=== PATIENT | female | born 1940 | race Two or more races ===

== ENCOUNTER 2023-01-13 00:49 | Inpatient (IN) | payer MEDICARE, OTHER ==
[~2023-01-13] VITALS: Ht 167.6 cm; Wt 56.7 kg
--- NOTE | 2023-01-13 01:05 | NUR ---
KENDRA 89 FROM HOME FOR C/O L POSTERIOR HEAD LACERATION S/P FALL IN THE BATHROOM. PER FRIEND WHO LIVES WITH THE PATIENT SHE LOST HER BALANCE AND REPORTED NO KO. TDAP IS NOT UPDATED. PATIENT WAS PLACED IN BED 4 ER ON [facility]. VSS. WILL CONT TO MONITOR
[2023-01-13] MEDS ORDERED: TDAP [DIPH/PERTUSSIS/TET] 0.5 ML VIAL IM ONE ×2 (01:14→01:30)
[2023-01-13 01:21] LABS: BASOPHILS % (AUTO) 0.3 % (0.0-2.0); EOSINOPHILS % (AUTO) 1.3 % (0.0-6.0); HEMATOCRIT 35 % (33-45); HEMOGLOBIN 11.6 g/dL (11.5-14.8); LYMPHOCYTES # (AUTO) 2.3 K/uL (0.8-4.8); LYMPHOCYTES % (AUTO) 23.4 % (20.0-44.0); MEAN CORPUSCULAR HGB CONC 33 g/dl (31.0-36.0); MEAN CORPUSCULAR VOLUME 103 fL (82-100); MONOCYTES # (AUTO) 0.8 K/uL (0.1-1.30); MONOCYTES % (AUTO) 8.3 % (2.0-12.0); NEUTROPHILS # (AUTO) 6.5 K/uL (1.8-8.9); NEUTROPHILS % (AUTO) 66.7 % (43.0-81.0); PLATELET COUNT (AUTO) 181 K/uL (150-450); RED BLOOD CELL COUNT(AUTO) 3.43 MIL/uL (4.0-5.2); WHITE BLOOD COUNT (AUTO) 9.8 K/uL (4.3-11.0)
[2023-01-13 01:36] LABS: ALANINE AMINOTRANSFERASE 33 U/L (12-78); ALBUMIN 3.3 g/dL (3.4-5.0); ALKALINE PHOSPHATASE 95 U/L (46-116); ASPARTATE AMINOTRANSFERASE 29 U/L (15-37); BILIRUBIN,DIRECT 0.2 mg/dL (0.0-0.2); BILIRUBIN,TOTAL 0.4 mg/dL (0.2-1.0); CALCIUM, SERUM 8.8 mg/dL (8.5-10.1); CARBON DIOXIDE 25 mmol/L (21-32); CHLORIDE 108 mmol/L (98-107); CREATININE 0.7 mg/dL (0.6-1.3); GLUCOSE 109 mg/dL (74-106); POTASSIUM 3.6 mmol/L (3.5-5.1); SODIUM SERUM 140 mmol/L (136-145); TOTAL PROTEIN, SERUM 6.4 g/dL (6.4-8.2); UREA NITROGEN, BLOOD 9 mg/dL (7-18)
--- NOTE | 2023-01-13 02:21 | NUR ---
COVID SWAB SENT TO LAB
[2023-01-13] MEDS ORDERED: LORA-259 PO (02:25)
[2023-01-13] MEDS ORDERED: FAMO-131 PO (02:25)
[2023-01-13] MEDS ORDERED: LEVO25TA7 PO (02:25)
[2023-01-13] MEDS ORDERED: SERT100T PO (02:25)
--- NOTE | 2023-01-13 02:25 | NUR ---
KHLOE, FRIEND: [phone]
[2023-01-13] MEDS ORDERED: ONDANSETRON HCL/PF 4 MG/2 ML VIAL IVP PRN (04:00)
[2023-01-13] MEDS ORDERED: MORPHINE SULFATE INJ 2 MG/ML DISP.SYRIN IV PRN (04:00)
[2023-01-13] MEDS ORDERED: hydrALAZINE HCL IV 20 MG VIAL IV PRN (04:00)
--- NOTE | 2023-01-13 04:12 | NUR ---
report given to bharath
[2023-01-13 04:57] LABS: THYROID STIMULATING HORMONE 6.065 uIU/mL (0.358-3.74)
--- NOTE | 2023-01-13 05:00 | NUR ---
IT TECHNICAL ARCHITECTGRADUATE SCHOOL DEAN NOTES: RECEIVE PATIENT VIA GURNEY FROM ER AWAKE,TRANSFER TO ROOM 116-1, PLACE IN BED COMFORTABLY, BED IN LOW POSITION, CALL LIGHTS WITHIN REACH, NO COMPLAIN OF PAIN AND DISCOMFORT AT THIS TIME, ON ROOM AIR SATURATING WELL, PATIENT IS A/O X3-4 WITH EPISODE OF CONFUSION, SKIN ASSESSMENT DONE DOCUMENTED, PICTURE TAKEN, INVENTORIES DONE, TAKEN AND SIGNED, PATIENT ON TELE MONITOR- SR-89 NO SYMPTOMS WAS OBSERVED, ORIENTED TO ROOM REMIND TO USE THE CALL LIGHTS WHEN NEEDED ASSISTANCE, PATIENT KEPT CLEAN AND DRY ALL NEEDS MET WILL CONTINUE TO MONITOR.
--- NOTE | 2023-01-13 06:54 | NUR ---
SPOOL CARRIER CLOSING NOTES: PATIENT SLEEP IN BED COMFORTABLY, AROUSABLE TO VERBAL STIMULI, BED IN LOW POSITION, CALL LIGHTS WITH IN REACH, NO COMPLAIN OF PAIN AND DISCOMFORT AT THIS TIME, ON ROOM AIR SATURATING WELL, PATIENT ON TELE MONITOR- SR-80, KEPT CLEAN AND DRY ALL NEEDS MET ENDORSE TO INCOMING SHIFT.
--- NOTE | 2023-01-13 07:15 | NUR ---
WILDLIFE MANAGEMENT PROFESSOR OPENING NOTES: RECEIVED PATIENT IN BED, AWAKE, ALERT, ORIENTED X 1 WITH PERIODS OF CONFUSION. PATIENT IS HARD OF HEARING WITH HEARING AID AT THE BEDSIDE. NO RESPIRATORY DISTRESS NOTED, BREATHING EVEN AND UNLABORED. ON RA TOLERATING IT WELL. PATIENT IS SR PER TELE MONITOR WITH HR OF 81. HAS SHAGGY CATH ON LEFT UPPER ARM. OCTAVIA INTACT ON LEFT SIDE OF THE HEAD, NO CONTINUOUS BLEEDING NOTED. NO C/O PAIN OR DISCOMFORT NOTED AT THIS TIME. ALL SAFETY MEASURES IN PLACE. BED LOCKED AND IN LOWEST POSITION WITH BED ALARM ON. CALL LIGHT WITHIN REACH AND INSTRUCTED PATIENT TO PLEASE USE IT WHENEVER SHE NEEDS ASSISTANCE IN GETTING UP. PATIENT VERBALIZED UNDERSTANDING AT THIS TIME. WILL CONTINUE TO MONITOR PATIENT THROUGHOUT SHIFT.
[2023-01-13 08:00] VITALS: BP 127/63
[2023-01-13] MEDS: LEVOTHYROXINE SODIUM 100 MCG TABLET PO SCH (08:04)
[2023-01-13] MEDS: FAMOTIDINE (20 MG) 20 MG TABLET PO SCH (08:04)
[2023-01-13] MEDS: SERTRALINE HCL 50 MG TABLET PO SCH (08:04)
[2023-01-13] MEDS: HEPARIN SODIUM, PORCINE 5000 UNITS/1 ML VIAL SQ SCH ×2 (08:06→20:52)
--- NOTE | 2023-01-13 09:05 | NUR ---
BED ALARM WENT OFF IN THE PATIENT'S ROOM AND PATIENT WAS TRYING TO GET UP WITHOUT CALLING THE NURSE. PATIENT WAS ASSISTED TO THE BATHROOM AND NOTICED UNSTEADY GAIT. INSTRUCTED PATIENT TO PLEASE MAKE SURE TO USE HER CALL LIGHT AND DO NOT TRY TO GET UP BY HERSELF. PATIENT AGREED..
--- NOTE | 2023-01-13 09:30 | NUR ---
FAMILY CAME BY AND STAYED WITH THE PATIENT. INFORMED THEM THAT THE PATIENT WAS TRYING TO GET UP WITHOUT HELP AND REITERATED THE INSTRUCTION TO PLEASE USE CALL LIGHT WHEN NEEDED.
--- NOTE | 2023-01-13 10:18 | NUR ---
WOUND CARE CONSULT: PT PRESENTS WITH LEFT SCALP CLOSED LACERATION WITH OCTAVIA, PRESENT ON ADMISSION. NO ACTIVE BLEEDING NOTED. RECOMMEND MD FOLLOW UP FOR OCTAVIA. WILL SEE PRN.
[2023-01-13 12:00] VITALS: BP 136/51
[2023-01-13] MEDS: ACETAMINOPHEN 325 MG TABLET PO PRN ×2 (12:06→19:07)
[2023-01-13] MEDS: IV NS 0.9% 1,000 ML IV PRN (12:06)
--- NOTE | 2023-01-13 13:00 | NUR ---
NURSE DEANA PLACE MIDLINE ON RIGHT UPPER ARM, PATIENT TOLERATED PROCEDURE WELL. PROTACATH ON LEFT UPPER ARM IS CLOGGED. NOTIFIED MD WITH AN ORDER FOR HEPARIN FLUSH. ORDER NOTED AND CARRIED OUT.
[2023-01-13] MEDS ORDERED: HEPARIN-LOCK FLUSH PORCINE PF 100 UNITS/1 ML (10 ML)DISP.SYRIN IV ONE ×2 (14:53→15:00)
[2023-01-13] MEDS ORDERED: HEPARIN SODIUM, PORCINE 1000 UNIT/1 ML VIAL IV ONE (15:00)
--- NOTE | 2023-01-13 15:22 | NUR ---
clarified heparin order with [facility] pharmacist.
[2023-01-13 16:00] VITALS: BP 143/80
--- NOTE | 2023-01-13 18:46 | NUR ---
SEMICONDUCTOR WAFERS MARKER CLOSING NOTES: PATIENT IN BED AWAKE, ALERT, ORIENTED X 2. PATIENT NOTED WITH PERIODS OF CONFUSION AND NOT UNDERSTANDING THE NURSE'S INSTRUCTION TO ALWAYS CALL FOR ASSISTANCE AND HAS ATTEMPTED A FEW TIMES TO GET OUT OF BED. BED ALARM KEPT ON AT ALL TIMES. ON SR WITH HR OF 90 PER TELE MONITOR. IV ACCESS ON RIGHT UPPER ARM MIDLINE INFUSING WITH NS @ 125 ML/HR, IV SITE WITH NO S/S INFILTRATION. SHAGGY CATH IN PLACE. ALL SAFETY MEASURES IMPLEMENTED. BED LOCKED AND IN LOWEST POSITION WITH BED ALARM ON. WILL ENDORSE TO INCOMING NURSE FOR CONTINUITY OF CARE.
--- NOTE | 2023-01-13 19:30 | NUR ---
RN OPENING NOTES: RECEIVED PT IN BED, AWAKE, ALERT, ORIENTED X 1 WITH EPISODES OF CONFUSION AND VERBALLY RESPONSIVE. ON ROOM AIR AND PT TOLERATED WELL. IV ACCESS RT UPPER ARM MIDLINE INTACT AND PATENT. RUNNING NS AT 125CC/HR. SHAGGY CATH IN PLACE. STILL NOTED SKIN LACERATION ON LT POSTERIOR HEAD WITH OCTAVIA. NO C/O PAIN OR DISCOMFORT. NO ACUTE DISTRESS. PT KEPT TRYING TO GET UP FROM THE BED WITH OUT ANY ASSIST. INSISTED PT TO USE THE CALL LIGHT WHEN SHE WANTS TO GET UP. BUT UNCOOPERATIVE. BED ALARM ON ALL THE TIME. FAMILY MEMBERS AT BEDSIDE. ALL SAFETY MEASURES IN PLACE. BED IN LOWEST POSITION AND LOCKED. SIDE RAILS UPX3. PLACE CALL LIGHT WITH IN REACH. WILL CONTINUE TO MONITOR.
[2023-01-13 20:00] VITALS: BP 138/58
[2023-01-14] VITALS: BP 118/62
--- NOTE | 2023-01-14 00:17 | NUR ---
RN NOTES: PT C/O UNABLE TO SLEEP. WANT SOMETHING. PER PREVIOUS SHIFT, PT WANTS TRAZODONE 50 MG. NOTIFIED LEIDY METZ. ORDER- TRAZODONE 50 MG TAB ONE TIME. ORDER NOTED AND CARRIED OUT.
[2023-01-14] MEDS ORDERED: TRAZODONE 50 MG TABLET PO ONE (00:30)
[2023-01-14] MEDS: IV NS 0.9% 1,000 ML IV PRN (03:07)
[2023-01-14 04:00] VITALS: BP 129/67
[2023-01-14] MEDS: ACETAMINOPHEN 325 MG TABLET PO PRN ×2 (05:25→11:15)
--- NOTE | 2023-01-14 05:30 | NUR ---
RN NOTES: PT C/O MILD HEADACHE AND NECK PAIN. TYLENOL 325 MG 2 TABS GIVEN AND PT TOLERATED WELL. WILL CONTINUE TO MONITOR
--- NOTE | 2023-01-14 06:29 | NUR ---
RN CLOSING NOTES: PT IN BED, AWAKE, ALERT, ORIENTED X 1 WITH EPISODES OF CONFUSION AND VERBALLY RESPONSIVE. ON ROOM AIR AND PT TOLERATED WELL. IV ACCESS RT UPPER ARM MIDLINE INTACT AND PATENT. RUNNING NS AT 125CC/HR. SHAGGY CATH IN PLACE STILL NOTED SKIN LACERATION ON LT POSTERIOR HEAD WITH OCTAVIA. NO C/O PAIN OR DISCOMFORT. NO ACUTE DISTRESS. PT KEPT TRYING TO GET UP FROM THE BED WITH OUT ANY ASSIST. INSISTED PT TO USE THE CALL LIGHT WHEN SHE WANTS TO GET UP. VERY UNCOOPERATIVE, STARTED TO YELLING AT NURSING STAFF MEMBER. BED ALARM ON ALL THE TIMEALL DUE MEDS GIVEN ORDERED. ALL SAFETY MEASURES IN PLACE. BED IN LOWEST POSITION AND LOCKED. SIDE RAILS UPX3. PLACE CALL LIGHT WITH IN REACH. WILL ENDORSE TO MORNING SHIFT NURSE.
--- NOTE | 2023-01-14 07:10 | NUR ---
CARPENTER LABOR SUPERVISOR OPENING NOTES: RECEIVED PATIENT IN BED, AWAKE, ALERT, ORIENTED X 1 WITH PERIODS OF CONFUSION. PATIENT HAS HER HEARING AID ON AT THIS TIME. ON RA AND NO SOB NOTED, BREATHING EVEN AND UNLABORED, TOLERATING IT WELL. PATIENT IS SR WITH HR OF 74 PER TELE MONITOR. HAS SHAGGY CATH ON LEFT UPPER ARM. IV ACCESS ON RIGHT UPPER ARM MIDLINE INFUSING WITH NS @ 125 ML/HR, IV SITE WITH NO S/S INFILTRATION NOTED. OCTAVIA INTACT ON LEFT SIDE OF THE HEAD, NO BLEEDING NOTED. NO C/O PAIN OR DISCOMFORT NOTED AT THIS TIME. ALL SAFETY MEASURES IN PLACE. BED LOCKED AND IN LOWEST POSITION WITH BED ALARM ON. CALL LIGHT WITHIN REACH AND INSTRUCTED PATIENT TO PLEASE CALL THE NURSE WHEN NEEDED. WILL CONTINUE TO MONITOR PATIENT THROUGHOUT SHIFT
[2023-01-14 07:16] LABS: BASOPHILS % (AUTO) 0.8 % (0.0-2.0); EOSINOPHILS % (AUTO) 1.5 % (0.0-6.0); HEMATOCRIT 30 % (33-45); HEMOGLOBIN 10.1 g/dL (11.5-14.8); LYMPHOCYTES # (AUTO) 1.3 K/uL (0.8-4.8); LYMPHOCYTES % (AUTO) 23.3 % (20.0-44.0); MEAN CORPUSCULAR HGB CONC 34 g/dl (31.0-36.0); MEAN CORPUSCULAR VOLUME 100 fL (82-100); MONOCYTES # (AUTO) 0.5 K/uL (0.1-1.30); MONOCYTES % (AUTO) 9.5 % (2.0-12.0); NEUTROPHILS # (AUTO) 3.8 K/uL (1.8-8.9); NEUTROPHILS % (AUTO) 64.9 % (43.0-81.0); PLATELET COUNT (AUTO) 131 K/uL (150-450); RED BLOOD CELL COUNT(AUTO) 2.99 MIL/uL (4.0-5.2); WHITE BLOOD COUNT (AUTO) 5.8 K/uL (4.3-11.0)
[2023-01-14] MEDS: LEVOTHYROXINE SODIUM 100 MCG TABLET PO SCH (07:41)
[2023-01-14 08:00] VITALS: BP 146/64
[2023-01-14] MEDS: SERTRALINE HCL 50 MG TABLET PO SCH (08:08)
[2023-01-14] MEDS: FAMOTIDINE (20 MG) 20 MG TABLET PO SCH (08:09)
[2023-01-14] MEDS: HEPARIN SODIUM, PORCINE 5000 UNITS/1 ML VIAL SQ SCH (08:10)
[2023-01-14 08:27] LABS: ALANINE AMINOTRANSFERASE 21 U/L (12-78); ALBUMIN 2.7 g/dL (3.4-5.0); ALKALINE PHOSPHATASE 77 U/L (46-116); ASPARTATE AMINOTRANSFERASE 21 U/L (15-37); BILIRUBIN,TOTAL 0.9 mg/dL (0.2-1.0); CALCIUM, SERUM 8.1 mg/dL (8.5-10.1); CARBON DIOXIDE 22 mmol/L (21-32); CHLORIDE 110 mmol/L (98-107); CREATININE 0.7 mg/dL (0.6-1.3); GLUCOSE 95 mg/dL (74-106); MAGNESIUM 1.5 mg/dL (1.8-2.4); PHOSPHORUS 2.8 mg/dL (2.5-4.9); SODIUM SERUM 140 mmol/L (136-145); TOTAL PROTEIN, SERUM 5.5 g/dL (6.4-8.2); UREA NITROGEN, BLOOD 9 mg/dL (7-18)
[2023-01-14] MEDS: Magnesium 1GM/D5W 100ML PREMIX 100 ML IV SCH ×3 (09:47→10:47)
[2023-01-14] MEDS: POTASSIUM CHLORIDE 20 MEQ TAB.PRT.SR PO SCH ×4 (09:47→11:51)
--- NOTE | 2023-01-14 10:00 | NUR ---
DR NUNO CAME BY TO VISIT THE PATIENT AND ORDERED FOR DISCHARGE SOON THE ORDERS FOR MAGNESIUM AND POTASSUM WERE GIVEN. FAMILY AT BEDSIDE. PATIENT AND FAMILY INFORMED
[2023-01-14] MEDS ORDERED: MAGNESIUM OXIDE 400 MG TABLET PO ONE (11:00)
[2023-01-14] MEDS ORDERED: POTASSIUM CHLORIDE 20 MEQ TAB.PRT.SR PO ONE (11:00)
[2023-01-14 12:00] VITALS: BP 146/70
--- NOTE | 2023-01-14 12:37 | NUR ---
PATIENT INFORMATION COORDINATOR NOTE: DISCHARGE PAPERWORK GIVEN TO THE PATIENT AND FAMILY AND SIGNED PAPERWORK. ANN MARIE PARTNER STATED THAT THEY HAVE A FOLLOW UP APPOINTMENT FOR OCTAVIA REMOVAL NEXT WEEK. IV MIDLINE TAKEN OFF OF PATIENT'S RIGHT UPPER ARM WITH HUB INTACT, REMOVED NEEDLE CONNECTION TO THE SHAGGY CATH ON LEFT UPPER ARM. TELE BOX REMOVED WELL PATIENT'S NAME BAND. PATIENT WAS TAKEN TO THE LOBBY VIA WHEELCHAIR AND WILL LEAVE BY PRIVATE TRANSPORTATION. PATIENT LEFT IN NO ACUTE DISTRESS AND NO C/O HEADACHE OR DIZZINESS NOTED.
== END 2023-01-14 14:12 | disposition home health service (06) | DRG 73 ==
LOC: ER 00:51 → TELE1 04:12
PROVIDERS: ADMIT Internal Medicine; ATTEND Internal Medicine
PROC: 0HQ0XZZ Repair Scalp Skin, External Approach (ICD-10-PCS; principal; 2023-01-13)
PROC: 05H933Z Insertion of Infusion Device into Right Brachial Vein, Percutaneous Approach (ICD-10-PCS; 2023-01-13)
DX: G90.8 Other disorders of autonomic nervous system (principal); G93.41 Metabolic encephalopathy; S01.01XA Laceration without foreign body of scalp, initial encounter; W19.XXXA Unspecified fall, initial encounter; E86.0 Dehydration; Z20.822 Contact with and (suspected) exposure to COVID-19; F32.9 Major depressive disorder, single episode, unspecified; Z79.899 Other long term (current) drug therapy; E03.9 Hypothyroidism, unspecified; W18.30XA Fall on same level, unspecified, initial encounter; Y92.002 Bathroom of unspecified non-institutional (private) residence as the place of occurrence of the external cause; D64.9 Anemia, unspecified; K21.9 Gastro-esophageal reflux disease without esophagitis
CPT/HCPCS: 36415; 70450-TC; 71045-TC; 80048-TC; 80053-TC; 80076-TC; 82607-TC; 83605-TC; 83735-TC; 84100-TC; 84439-TC; 84443-TC; 84484-TC; 85025-TC; 87081-TC; 90715; 93307-TC; A4223; A6253; A6403; C9803; G0378; J1642; J1644; J3475; J7030